=== PATIENT | female | born 1940 | race Caucasian/White ===

== ENCOUNTER 2017-04-11 10:06 | Day surgery (SDC) | payer OTHER ==
[~2017-04-11 10:06] MED LIST: ADVAIR 500/501 DISK IH; ASPIR 8181 M1 PO; CYANOCOBALAM1000 MCG PO; DICYCLOMINE HCL20 MG PO; FISH OIL OMEGA1 EACH PO; LEVEMIR FL100 UNIT/1 SC; LISINOPRIL10 MG PO; METFORMIN HCL1000 MG PO; MIRALAX255 GM PO; MONTELUKAST SOD10 MG PO; NOVOLOG PE100 UNITS/ SC; OMEPRAZOLE20 M2 PO; PROAIR HFA8.5 GM IH; PROVENTIL,2.5 MG/3 M IH; SIMVASTATIN40 MG PO; TYLENOL EXTRA500 MG PO; VITAMIN D1000 UNIT PO
[2017-04-11] MEDS ORDERED: CELEXA10 MG PO (10:27)
[2017-04-11 10:46] LABS: POINT-OF-CARE METER ID UU13113696
== END 2017-04-11 17:15 | disposition home or self-care (01) ==
LOC: CATH 10:06
PROVIDERS: Internal Medicine Cardiovascular Disease
DX: I25.10 Atherosclerotic heart disease of native coronary artery without angina pectoris (principal); E11.9 Type 2 diabetes mellitus without complications; J45.909 Unspecified asthma, uncomplicated; E78.5 Hyperlipidemia, unspecified; I10 Essential (primary) hypertension; Z79.82 Long term (current) use of aspirin
CPT/HCPCS: 82948; 93005; C1760; C1769; C1887; C1894; J1644; J2250; J3010